=== PATIENT | female | born 1950 | race Caucasian/White ===

== ENCOUNTER 2023-05-03 20:37 | Emergency (ER) | payer SELFPAY ==
[2023-05-03] MEDS: hydrOXYzine HCl 25 MG Tab PO ONE (21:06)
[2023-05-03 21:45] LABS: CORONAVIRUS COVID-19 NAA NEGATIVE (NEGATIVE); INFLUENZA A NAA NEGATIVE (NEGATIVE); INFLUENZA B NAA NEGATIVE (NEGATIVE); RESPIRATORY SYNCYTIAL VIR NAA NEGATIVE (NEGATIVE)
[2023-05-03] MEDS: predniSONE 20 MG Tab PO ONE (22:03)
== END 2023-05-03 23:39 | disposition home or self-care (01) ==
LOC: MW.ED 20:37
DX: J06.9 Acute upper respiratory infection, unspecified (principal); E03.9 Hypothyroidism, unspecified; E78.00 Pure hypercholesterolemia, unspecified; Z79.899 Other long term (current) drug therapy
CPT/HCPCS: 0241U; 71046; 99283; A9270